=== PATIENT | male | born 1960 | race Caucasian/White ===

== ENCOUNTER 2020-11-01 14:30 | Outpatient (CLI) | payer OTHER ==
[2020-11-01 15:30] VITALS: BP 138/84
--- NOTE | 2020-11-01 15:30 | SLEEP CARE CONSULTATION ---
Information from patient questionnaire entered by Kandy Breen. I have reviewed and concur with the information entered by Kandy Breen. This document represents the service I personally performed and the decisions made by me, Radha Pierre ARNP. History of Present Illness Service Date and Time: 11/01/2020 1430 Reason for Visit: New patient, Previously diagnosed sleep apnea, sleep apnea on CPAP therapy Chief Complaint: reports: Snoring, Observed pauses in breathing, Frequent awakenings at night (mainly from shoulder pain), Other (Cpap adjust) Date of Onset: 10 years plus Usual bedtime: 10 pm Time it takes to fall asleep: 30 seconds Snores at night: Yes Observed to quit breathing while asleep: Yes Sleeps alone due to snoring: No Number of times waking at night: 8 Reasons for waking at night: reports: Pain. denies: Choking, Snoring, Gasping for air Toss, Turn, or Twitch while sleeping: Yes Recalls having dreams: Yes (some of drowning or not breathing) Feels refreshed in the morning: Yes (usually) Morning headache: No Sleepy or fatigued during the day: Yes Ever fallen asleep while driving: Yes (no accident, has nodded off 4-5 times at night when driving after bedtime) Takes day naps: No Prior sleep studies: Yes Year and Where: 2017 - [facility] in [place], [place] Additional HPI information: LYNDA WALLIS was diagnosed to have unknown severity obstructive sleep apnea-hypopnea syndrome and comes in today to establish care for CPAP therapy. He had a sleep study in 2008 that he was mild borderline sleep apnea and they started him on a CPAP machine but he never really used it. He had another sleep study in 2019 in [place], [place] and was told that he needed a CPAP machine and a titration study was ordered to determine optimal pressure for CPAP therapy. He was not able to follow through with this and never started the CPAP therapy. He has tried to use the old machine a few times but the pressure is too low and he feels like he is smothering. - Parasomnia Symptoms Ever been unable to move upon waking from sleep: Yes Walks in sleep: No Talks in sleep: No Ever acted out dreams in sleep: No Ever felt weak in the knees when startled or emotional: No Bothered by creepy, crawly, restless sensations in legs: No Problems with memory or concentration: No CPAP Compliance Data - Data Reviewed with Patient Average duration of nightly device use: 42 minutes 39 seconds Compliance rate %: 0 (2019) Current pressure setting (cmH2O): 8 Average residual AHI: 2.2 Average large leak: 0 seconds Compliance data discussion: He has been using nasal pillows masks. He has not been consistently using the machine since he got it. He tried to use it and the pressure felt too low and would like to increase the pressure so he can use the machine. 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 Patient is and lives in [place]. Have you smoked in the past 12 months: No Alcohol use: Yes Alcohol amount and frequency: 1-2 occasionally Caffeine use: Yes Caffeine amount and frequency: 3 a day Family History Family history of sleep disordered breathing: No Allergies and Home Medications Drug allergies reviewed: Yes (Voltoswaldo baumand) Allergy and home medication list: aspirin Selenium Losartan Metaprolol Ropinerole Furosemide Procardia Review of Systems Weight gain over past 5 years: 30 Cardiovascular: reports: high blood pressure, leg or foot swelling Ear/Nose/Throat: reports: nasal congestion, wisdom teeth removed. denies: tonsillectomy Musculoskeletal: reports: joint pain, back pain, joint swelling, muscle pain or cramping, mobility problems Physical Exam Blood Pressure: 138/84 Cuff size: wrist Heart Rate: 73 O2 Saturation: 98 Height: 5 ft 10 in Weight: 273 lb Body Mass Index: 39.2 BMI Classification: Obese Impression and Plan 1. Suspected Obstructive Sleep Apnea-Hypopnea Syndrome, as previously diagnosed and as suggested by a continuing history of loud and irregular snoring, observed cessation of breath while asleep, frequent awakening during the night, unrefreshed sleep, and excessive daytime sleepiness. We are attempting to get copy of previous sleep studies. But, since he has not been consistently using the CPAP machine we will probably need to get a HST to verify diagnosis and to assess severity. I informed the patient of what the sleep studies involve and after some discussion, obtained agreement to proceed. The pathophysiology of obstructive sleep apnea-hypopnea syndrome was discussed with the patient and health risks of cardiovascular and cerebrovascular disease if not treated. Risks of drowsy driving discussed in detail and patient advised to avoid long distance driving and to plant puller at the first sign of drowsiness. Patient agreed to plan. * Try to obtain copy of previous sleep studies * Schedule HST to verify diagnosis and severity since patient has not been on consistent CPAP therapy. * Avoid long distance driving or driving when feeling sleepy. * Avoid alcohol, sedative and muscle relaxant around bedtime. * Review instructions provided by trained office staff on how to prepare for the sleep study. * Return for follow-up after sleep study completed. Visit Type: In Office Time Spent with Patient (minutes): 32 Provider Statement: I spent 100% of the Face to Face Visit with the patient with greater than 50% spent counseling the patient and coordination of care.
== END 2020-11-01 14:31 | disposition home or self-care (01) ==
LOC: SC 14:30
PROVIDERS: ATTEND Nurse Practitioner Family
DX: G47.33 Obstructive sleep apnea (adult) (pediatric) (principal); E66.9 Obesity, unspecified; Z68.39 Body mass index [BMI] 39.0-39.9, adult
CPT/HCPCS: 99203; 99212

== ENCOUNTER 2020-11-22 11:52 | Outpatient (CLI) | payer OTHER | END 2020-11-22 11:53 | disposition home or self-care (01) | LOC: SC 11:52 | PROVIDERS: ATTEND Nurse Practitioner Family | DX: G47.33 Obstructive sleep apnea (adult) (pediatric) (principal); R09.02 Hypoxemia | CPT/HCPCS: 95806 ==

== ENCOUNTER 2020-12-12 08:35 | Outpatient (CLI) | payer OTHER ==
--- NOTE | 2020-12-12 09:34 | SLEEP CARE CONSULTATION ---
Information from patient questionnaire entered by Kandy Breen. I have reviewed and concur with the information entered by Kandy Breen. This document represents the service I personally performed and the decisions made by , Radha Pierre ARNP. History of Present Illness Service Date and Time: 12/12/2020 0835 Initial [place] Sleepiness Scale score: 7 (in 2020) Current [place] Sleepiness Scale score: 8 Additional HPI information: LYNDA WALLIS returns for follow up and results of the recently performed home sleep study. I explained the pathophysiology behind obstructive sleep apnea. We then spent quite a bit of time discussing different treatment options. For mild obstructive sleep apnea, surgery and oral appliance are alternatives to nasal CPAP therapy but in moderate or severe cases, nasal CPAP is the most effective and reliable treatment. Because apnea is mild obstructive sleep apnea in supine position, then positional management with oral appliance therapy could be effective. Methods discussed such as positioning with pillows, using a T-shirt with tennis balls in the back, and shown commercial products that have a pillow format on back to prevent supine sleep. I reviewed the impact of weight changes on sleep apnea and strongly recommended losing weight. Patient has some shoulder pain that can limit him sleeping on his sides. He would like to consider the Inspire implant for his NYDIA. Patient counseled not drink alcohol less than 4 hours before bedtime as it can increase snoring and apnea. Patient was cautioned about risks of drowsy driving until sleepiness symptoms resolve. Sleep Study - Results Type of Sleep Study: Home sleep study Prior sleep studies: Yes Year and Where: 2017 - [facility] in [place], [place] Polysomnography/Home Sleep Study results: Physician Impression: The quality of the study is good. The length of the study is adequate (> 240 minutes). Please also see the tabulated and graphic data. 1. Obstructive Sleep Apnea-Hypopnea (ICD-10 G47.33), moderate, with an AHI of 16.5/hr and dinorah SaO2 of 73%. During the study, the patient had 44 apneas (43 obstructive, 1 central, 0 mixed) and 52 hypopneas. The longest episode lasted 51.0 seconds. The respiratory events occurred more frequently during supine sleep (supine AHI was 20.5 and non-supine, 11.04). 2. Hypoxemia (ICD-10 R09.02), moderate, with the lowest oxygen saturation of 73 % and 51.2 minutes with SaO2 under 90%. Baseline oxygen saturation was normal (Average oxygen saturation was 91%). Allergies and Home Medications Home medication list reviewed: Yes (no changes) Review of Systems Review of systems same as previous: Yes (no changes) Physical Exam Heart Rate: 67 O2 Saturation: 93 Height: 5 ft 10 in Weight: 279 lb Body Mass Index: 40.0 BMI Classification: Morbidly Obese Impression and Plan 1. Obstructive Sleep Apnea-Hypopnea Syndrome, moderate, with lowest oxygen saturation of 73%. Patient did not tolerate CPAP therapy. He was diagnosed about 6-7 years ago and was only able to use it for 1 month. He couldn't tolerate something on his face. He sleeps on his stomach with his chin on his hand/arm and was unable to get comfortable with the CPAP mask on his face. He came back for another sleep study in 2019 and was found to still have severe NYDIA with an AHI 52.3 but when he tried using the CPAP machine again he was unable to tolerate the mask for more than an hour. He returned to reverify diagnosis and explore other options for treatment. I discussed with patient his other treatment choices, including positional therapy with an oral appliance. He would need to check with his insurance to see if they cover the oral appliances. Patient would like to try Inspire implant for his NYDIA. He has shown to be intolerant of CPAP therapy and has moderate obstructive sleep apnea. He is trying to lose weight and has a BMI of 40.0. He may be a good candidate for this therapy. I will refer him to Dr. Justino John for evaluation. Patient has a history of hypertension and insulin resistance. Because the apnea is more severe supine, I instructed to avoid sleeping supine using pillow positioning, etc. until able to follow up. * Referral to be evaluated for Inspire * Continue to try to lose weight. * Avoid alcohol consumption near bedtime. * Avoid supine sleep. * The patient is again cautioned about driving until sleepiness completely resolves. * Return after consult for Inspire as needed. Counseling Topics: Weight loss health impact Visit Type: In Office Time Spent with Patient (minutes): 28 Provider Statement: I spent 100% of the Face to Face Visit with the patient with greater than 50% spent counseling the patient and coordination of care.
== END 2020-12-12 08:36 | disposition home or self-care (01) ==
LOC: SC 08:35
PROVIDERS: ATTEND Nurse Practitioner Family
DX: G47.33 Obstructive sleep apnea (adult) (pediatric) (principal); E66.9 Obesity, unspecified; Z68.41 Body mass index [BMI] 40.0-44.9, adult
CPT/HCPCS: 99212; 99213